=== PATIENT | female | born 1995 | race Caucasian/White ===

== ENCOUNTER 2023-12-09 07:07 | Day surgery (SDC) | payer BC, SELFPAY ==
[2023-12-09] VITALS (10 sets, daily range): BP systolic 133–152; BP diastolic 84–96; BMI 34.1
[2023-12-09] MEDS: NORMOSOL-R 1000 IV (12:37)
[2023-12-09] MEDS: TYLENOL 1000 MG PO (13:21)
[2023-12-09] MEDS: TRANSDERM-SCOP 1 PATCH TRANSDERM (13:21)
[2023-12-09] MEDS: SUBLIMAZE 25 MCG IV ×3 (15:24→16:02)
[2023-12-09] MEDS: ROXICODONE 5 MG PO (17:08)
== END 2023-12-09 18:05 | disposition home or self-care (01) ==
LOC: SDS 07:07
PROVIDERS: ATTENDING PHYSICIAN Otolaryngology Facial Plastic Surgery
DX: G47.33 Obstructive sleep apnea (adult) (pediatric) (principal); J34.2 Deviated nasal septum; J34.89 Other specified disorders of nose and nasal sinuses; J34.3 Hypertrophy of nasal turbinates
CPT/HCPCS: 30520; 30140; 88300